=== PATIENT | male | born 1955 | race Caucasian/White ===

== ENCOUNTER 2022-10-17 21:59 | Inpatient (IN) | payer MEDICARE, BC, MEDICAID ==
[2022-10-17 22:39] LABS: Hemoglobin 14.3 g/dL (14.0-18.0); Mean Corpuscular HGB CONC 34.1 g/dL (32.0-36.0); Mean Corpuscular Hemoglobin 32.7 pg (27.0-31.0); Mean Corpuscular Volume 95.7 fl (78.0-98.0); Mean Platelet Volume 7.4 fL (7.4-10.4); Platelet Count 307 10x3/uL (130-400); RBC Distribution Width 12.1 % (11.5-14.5); Red Blood Cell (RBC) Count 4.39 mill/uL (4.70-6.10); White Blood Cell (WBC) Count 16.4 10x3/uL (4.8-10.8)
[2022-10-17 22:55] LABS: ALT (SGPT) Less than 7 U/L (8-55); AST (SGOT) 14 U/L (5-34); Albumin 3.8 g/dL (3.4-4.8); Alkaline Phosphatase 92 U/L (40-110); Anion Gap 18 mmol/L (10-20); BUN (Urea Nitrogen) 32 mg/dL (8.4-25.7); Bilirubin, Total 0.5 mg/dL (0.2-1.2); Calc. Creatinine Clearance 0 mL/min (70-130); Calcium 8.2 mg/dL (7.8-10.44); Carbon Dioxide 25 mmol/L (23-31); Chloride 93 mmol/L (98-107); Estimated GFR 47; Globulin 3.3 g/dL (2.4-3.5); Glucose 214 mg/dL (80-115); Potassium 3.9 mmol/L (3.5-5.1); Protein, Total 7.1 g/dL (5.8-8.1); Sodium 132 mmol/L (136-145)
[2022-10-17 22:57] LABS: Band 30 % (5-11); Lymphocytes 10 % (21-51); MDiff Complete? YES; Monocytes 9 % (0-10); Neutrophil 51 % (42-75)
[2022-10-17] MEDS ORDERED: Cefepime 2 GM VIAL ONE (23:26)
[2022-10-18 00:12] LABS: Bacteria/HPF 3+ HPF (None Seen); Bilirubin 1+ (Negative); Blood, Urine 1+ (Negative); Clarity Extra Turbid (Clear); Glucose, Urine (Dipstick) Normal (Negative); Ketone, Urine 10 mg/dL (Negative); Leukocyte 500 Leu/uL (Negative); Nitrite Negative (Negative); Protein, Urine (Dipstick) 200 mg/dL (Neg-Trace); RBC/HPF 0-3 HPF (0-3); Specific Gravity, Urine 1.021 (1.002-1.036); WBC/HPF Greater than 50 HPF (0-3); pH, Urine 7.5 (5.0-9.0)
[2022-10-18] MEDS ORDERED: Vancomycin 1 GM/200 ML (FROZEN) BAG ONE ×2 (00:30→00:33)
[2022-10-18] MEDS ORDERED: Ondansetron ODT 4 MG TAB PO PRN ×2 (02:05→09:38)
[2022-10-18] MEDS ORDERED: Dextrose 5% in Water 1,000 ML IV PRN (02:05)
[2022-10-18] MEDS ORDERED: Acetaminophen 650 MG Suppository PR PRN (02:05)
[2022-10-18] MEDS ORDERED: HumaLOG 300 UNITS/3 ML VIAL SC PRN (02:05)
[2022-10-18] MEDS ORDERED: Acetaminophen 325 MG TAB PO PRN (02:05)
[2022-10-18] MEDS ORDERED: Dextrose 50% Abboject 50 ML SYRINGE SLOW IVP PRN (02:05)
[2022-10-18] MEDS ORDERED: Ondansetron PF 4 MG/2 ML Vial IVP PRN (02:05)
[2022-10-18 03:06] VITALS: BMI 26.2
[2022-10-18] MEDS ORDERED: Doxycycline 100 MG in Sodium Chloride 0.9% 100 ML IVPB SCH (05:00)
[2022-10-18 05:21] LABS: #Eosinphils 0.1 thou/uL (0.0-0.7); #Lymphocytes 2.2 thou/uL (1.20-3.40); #Monocytes 1.1 thou/uL (0.11-0.59); #Neutrophils 7.5 thou/uL (1.40-6.50); %Basophils 0.1 % (0.0-1.0); %Eosinophils 0.9 % (0.0-10.0); %Lymphocytes 20.5 % (21.0-51.0); %Monocytes 10.4 % (0.0-10.0); %Neutrophils 68.3 % (42.0-75.0); Hemoglobin 12.6 g/dL (14.0-18.0); Mean Corpuscular HGB CONC 33.8 g/dL (32.0-36.0); Mean Corpuscular Hemoglobin 32.6 pg (27.0-31.0); Mean Corpuscular Volume 96.4 fl (78.0-98.0); Mean Platelet Volume 7.4 fL (7.4-10.4); Platelet Count 255 10x3/uL (130-400); RBC Distribution Width 11.9 % (11.5-14.5); Red Blood Cell (RBC) Count 3.86 mill/uL (4.70-6.10); White Blood Cell (WBC) Count 10.9 10x3/uL (4.8-10.8)
[2022-10-18 05:39] LABS: Anion Gap 13 mmol/L (10-20); BUN (Urea Nitrogen) 30 mg/dL (8.4-25.7); Calc. Creatinine Clearance 68 mL/min (70-130); Calcium 7.9 mg/dL (7.8-10.44); Carbon Dioxide 28 mmol/L (23-31); Chloride 94 mmol/L (98-107); Estimated GFR 65; Glucose 184 mg/dL (80-115); Potassium 3.5 mmol/L (3.5-5.1); Sodium 131 mmol/L (136-145)
[2022-10-18 08:22] LABS: SARS-CoV-2 NAA Rapid Test Not Detected (NotDetected)
[2022-10-18] MEDS ORDERED: FLU VACC QS2022-23(65YR UP)/PF 240 MCG/0.7 ML SYRINGE IM ONE (09:00)
[2022-10-18] MEDS ORDERED: GUAIFENESIN 400 MG PO PRN (09:09)
[2022-10-18] MEDS ORDERED: Non-Formulary Item 1 EACH (Ondansetron Hcl [Zofran] 4 MG Tab) PO PRN (09:09)
[2022-10-18] MEDS ORDERED: Non-Formulary Item 1 EACH (Acetaminophen [Tylenol] 325 MG Capsule) PO PRN (09:09)
[2022-10-18] MEDS ORDERED: Non-Formulary Item 1 EACH (Ferrous Sulfate [Ferrous Sulfate] 325 MG Tab) PO PRN ×2 (09:09→09:39)
[2022-10-18] MEDS ORDERED: guaiFENesin 200 MG TAB PO PRN (09:35)
[2022-10-18] MEDS: Lactated Ringer's 1,000 ML IV SCH (09:55)
[2022-10-18] MEDS: Carbidopa/Levodopa 25-250 mg Tablet PO SCH ×3 (11:48→21:00)
[2022-10-18] MEDS: HumaLOG 300 UNITS/3 ML VIAL SC PRN ×2 (12:00→18:29)
[2022-10-18] MEDS ORDERED: Cefepime 1 GM in Sodium Chloride 0.9% 100 ML IVPB SCH (12:00)
[2022-10-18] MEDS: Diazepam 5 MG TAB PO SCH ×2 (14:22→20:59)
[2022-10-18] MEDS: carBAMazepine 200 MG TAB PO SCH ×2 (14:23→21:04)
[2022-10-18] MEDS ORDERED: Piperacillin/Tazobactam 3.375 GM in Sodium Chloride 0.9% 100 ML IVPB SCH (15:00)
[2022-10-18] MEDS: Piperacillin/Tazobactam 3.375 GM in Sodium Chloride 0.9% 100 ML IVPB SCH (20:59)
[2022-10-18] MEDS: metFORMIN 500 MG TAB PO SCH (21:00)
[2022-10-18] MEDS: QUEtiapine 25 MG TAB PO SCH (21:00)
[2022-10-18] MEDS: Atorvastatin Calcium 10 MG TAB PO SCH (21:00)
[2022-10-19] MEDS: Piperacillin/Tazobactam 3.375 GM in Sodium Chloride 0.9% 100 ML IVPB SCH ×3 (03:45→21:45)
[2022-10-19 05:37] LABS: #Basophils 0.1 thou/uL (0.0-0.2); #Eosinphils 0.3 thou/uL (0.0-0.7); #Lymphocytes 1.3 thou/uL (1.20-3.40); #Monocytes 0.8 thou/uL (0.11-0.59); %Basophils 0.8 % (0.0-1.0); %Eosinophils 4.2 % (0.0-10.0); %Lymphocytes 17.8 % (21.0-51.0); %Neutrophils 66.2 % (42.0-75.0); Hemoglobin 11.6 g/dL (14.0-18.0); Mean Corpuscular HGB CONC 32.7 g/dL (32.0-36.0); Mean Corpuscular Hemoglobin 32.4 pg (27.0-31.0); Mean Platelet Volume 7.4 fL (7.4-10.4); Platelet Count 277 10x3/uL (130-400); Red Blood Cell (RBC) Count 3.59 mill/uL (4.70-6.10); White Blood Cell (WBC) Count 7.5 10x3/uL (4.8-10.8)
[2022-10-19 06:02] LABS: Albumin 3.3 g/dL (3.4-4.8); Anion Gap 14 mmol/L (10-20); BUN (Urea Nitrogen) 14 mg/dL (8.4-25.7); BUN/Creatinine Ratio 18.18; Calc. Creatinine Clearance 106 mL/min (70-130); Calcium 8.4 mg/dL (7.8-10.44); Carbon Dioxide 30 mmol/L (23-31); Chloride 96 mmol/L (98-107); Estimated GFR 97; Glucose 141 mg/dL (80-115); Phosphorus 2.5 mg/dL (2.3-4.7); Potassium 3.7 mmol/L (3.5-5.1); Sodium 136 mmol/L (136-145)
[2022-10-19] MEDS: Lactated Ringer's 1,000 ML IV SCH ×2 (07:18→08:58)
[2022-10-19] MEDS: Stress 600 With Zinc 1 TAB PO SCH (08:55)
[2022-10-19] MEDS: Diazepam 5 MG TAB PO SCH ×3 (08:55→21:46)
[2022-10-19] MEDS: Propranolol HCl LA 60 MG CAP PO SCH (08:56)
[2022-10-19] MEDS: Ezetimibe 10 MG TAB PO SCH (08:56)
[2022-10-19] MEDS: Cyanocobalamin (Vitamin B-12) 1,000 MCG TAB PO SCH (08:56)
[2022-10-19] MEDS: metFORMIN 500 MG TAB PO SCH ×2 (08:56→21:46)
[2022-10-19] MEDS: Carbidopa/Levodopa 25-250 mg Tablet PO SCH ×4 (08:56→21:46)
[2022-10-19] MEDS: Multivit, Therapeutic 1 TAB PO SCH (08:56)
[2022-10-19] MEDS: QUEtiapine 25 MG TAB PO SCH ×2 (08:56→21:46)
[2022-10-19] MEDS: Amlodipine 10 MG TAB PO SCH (08:56)
[2022-10-19] MEDS: carBAMazepine 200 MG TAB PO SCH ×3 (08:57→21:46)
[2022-10-19] MEDS ORDERED: Non-Formulary Item 1 EACH (Multivitamin [Multivitamins] 1 CAP Capsule) PO SCH (09:00)
[2022-10-19] MEDS ORDERED: PROPRANOLOL HCL 120 MG PO SCH (09:00)
[2022-10-19] MEDS ORDERED: CYANOCOBALAMIN 1000 MCG PO SCH (09:00)
[2022-10-19] MEDS ORDERED: FOLIC ACID PO SCH (09:00)
[2022-10-19] MEDS ORDERED: VIT B COMPLEX AND C PO SCH (09:00)
[2022-10-19] MEDS ORDERED: [UNRECOGNIZED DRUG - OTHER] PO SCH (09:00)
[2022-10-19] MEDS: HumaLOG 300 UNITS/3 ML VIAL SC PRN ×2 (13:19→17:49)
[2022-10-19] MEDS: Atorvastatin Calcium 10 MG TAB PO SCH (21:46)
[2022-10-20] MEDS: Piperacillin/Tazobactam 3.375 GM in Sodium Chloride 0.9% 100 ML IVPB SCH (03:58)
[2022-10-20] MEDS: HumaLOG 300 UNITS/3 ML VIAL SC PRN ×3 (06:45→18:04)
[2022-10-20] MEDS: Ezetimibe 10 MG TAB PO SCH (09:03)
[2022-10-20] MEDS: Stress 600 With Zinc 1 TAB PO SCH (09:04)
[2022-10-20] MEDS: Multivit, Therapeutic 1 TAB PO SCH (09:04)
[2022-10-20] MEDS: Diazepam 5 MG TAB PO SCH ×3 (09:04→20:39)
[2022-10-20] MEDS: Carbidopa/Levodopa 25-250 mg Tablet PO SCH ×4 (09:04→20:39)
[2022-10-20] MEDS: carBAMazepine 200 MG TAB PO SCH ×3 (09:04→20:39)
[2022-10-20] MEDS: QUEtiapine 25 MG TAB PO SCH ×2 (09:04→20:39)
[2022-10-20] MEDS: metFORMIN 500 MG TAB PO SCH ×2 (09:04→17:40)
[2022-10-20] MEDS: Cyanocobalamin (Vitamin B-12) 1,000 MCG TAB PO SCH (09:04)
[2022-10-20] MEDS: Propranolol HCl LA 60 MG CAP PO SCH (09:04)
[2022-10-20] MEDS: Amlodipine 10 MG TAB PO SCH (09:04)
[2022-10-20] MEDS ORDERED: Furosemide 20 MG/2 ML VIAL SLOW IVP SCH (09:30)
[2022-10-20] MEDS: Amoxicillin/Potassium Clav 875 MG TAB PO SCH (20:39)
[2022-10-20] MEDS: Atorvastatin Calcium 10 MG TAB PO SCH (20:39)
[2022-10-21 05:53] LABS: #Basophils 0.1 thou/uL (0.0-0.2); #Eosinphils 0.3 thou/uL (0.0-0.7); #Lymphocytes 2.1 thou/uL (1.20-3.40); #Monocytes 0.7 thou/uL (0.11-0.59); #Neutrophils 7.2 thou/uL (1.40-6.50); %Basophils 0.6 % (0.0-1.0); %Eosinophils 3.2 % (0.0-10.0); %Lymphocytes 20.2 % (21.0-51.0); %Monocytes 6.6 % (0.0-10.0); %Neutrophils 69.3 % (42.0-75.0); Hemoglobin 13.2 g/dL (14.0-18.0); Mean Corpuscular HGB CONC 33.5 g/dL (32.0-36.0); Mean Corpuscular Hemoglobin 32.6 pg (27.0-31.0); Mean Corpuscular Volume 97.5 fl (78.0-98.0); Mean Platelet Volume 7.3 fL (7.4-10.4); Platelet Count 400 10x3/uL (130-400); Red Blood Cell (RBC) Count 4.05 mill/uL (4.70-6.10); White Blood Cell (WBC) Count 10.3 10x3/uL (4.8-10.8)
[2022-10-21 06:08] LABS: Albumin 3.5 g/dL (3.4-4.8); Anion Gap 14 mmol/L (10-20); BUN (Urea Nitrogen) 10 mg/dL (8.4-25.7); BUN/Creatinine Ratio 11.63; Calc. Creatinine Clearance 95 mL/min (70-130); Calcium 9.2 mg/dL (7.8-10.44); Carbon Dioxide 32 mmol/L (23-31); Chloride 92 mmol/L (98-107); Estimated GFR 94; Glucose 183 mg/dL (80-115); Phosphorus 3.1 mg/dL (2.3-4.7); Potassium 3.7 mmol/L (3.5-5.1); Sodium 134 mmol/L (136-145)
[2022-10-21] MEDS: HumaLOG 300 UNITS/3 ML VIAL SC PRN (06:19)
[2022-10-21] MEDS: QUEtiapine 25 MG TAB PO SCH ×2 (08:34→21:00)
[2022-10-21] MEDS: metFORMIN 500 MG TAB PO SCH ×2 (08:34→16:01)
[2022-10-21] MEDS: Cyanocobalamin (Vitamin B-12) 1,000 MCG TAB PO SCH (08:34)
[2022-10-21] MEDS: Carbidopa/Levodopa 25-250 mg Tablet PO SCH ×4 (08:34→21:00)
[2022-10-21] MEDS: Multivit, Therapeutic 1 TAB PO SCH (08:34)
[2022-10-21] MEDS: Diazepam 5 MG TAB PO SCH ×3 (08:34→20:59)
[2022-10-21] MEDS: Amlodipine 10 MG TAB PO SCH (08:34)
[2022-10-21] MEDS: Ezetimibe 10 MG TAB PO SCH (08:34)
[2022-10-21] MEDS: Amoxicillin/Potassium Clav 875 MG TAB PO SCH ×2 (08:34→21:00)
[2022-10-21] MEDS: Stress 600 With Zinc 1 TAB PO SCH (08:35)
[2022-10-21] MEDS: Propranolol HCl LA 60 MG CAP PO SCH (08:35)
[2022-10-21] MEDS: carBAMazepine 200 MG TAB PO SCH ×3 (08:47→21:00)
[2022-10-21] MEDS: Atorvastatin Calcium 10 MG TAB PO SCH (21:00)
[2022-10-22] MEDS: Amlodipine 10 MG TAB PO SCH (08:29)
[2022-10-22] MEDS: metFORMIN 500 MG TAB PO SCH (08:29)
[2022-10-22] MEDS: Amoxicillin/Potassium Clav 875 MG TAB PO SCH (08:38)
[2022-10-22] MEDS: Diazepam 5 MG TAB PO SCH (08:38)
[2022-10-22] MEDS: Cyanocobalamin (Vitamin B-12) 1,000 MCG TAB PO SCH (08:38)
[2022-10-22] MEDS: Ezetimibe 10 MG TAB PO SCH (08:38)
[2022-10-22] MEDS: Carbidopa/Levodopa 25-250 mg Tablet PO SCH (08:38)
[2022-10-22] MEDS: Propranolol HCl LA 60 MG CAP PO SCH (08:39)
[2022-10-22] MEDS: Stress 600 With Zinc 1 TAB PO SCH (08:39)
[2022-10-22] MEDS: QUEtiapine 25 MG TAB PO SCH (08:39)
[2022-10-22] MEDS: Multivit, Therapeutic 1 TAB PO SCH (08:39)
[2022-10-22 09:21] VITALS: BP 160/82; TEMP 97.5
[2022-10-22] MEDS: carBAMazepine 200 MG TAB PO SCH (10:26)
== END 2022-10-22 12:50 | disposition home or self-care (01) | DRG 177 ==
LOC: ERS 21:59 → MSONC 10-18 01:10 → OBSVTOIN 10-19 14:07
PROVIDERS: ADMIT Student in an Organized Health Care Education/Training Program; ATTEND Internal Medicine
DX: J69.0 Pneumonitis due to inhalation of food and vomit (principal); G93.41 Metabolic encephalopathy; J96.01 Acute respiratory failure with hypoxia; N39.0 Urinary tract infection, site not specified; N17.9 Acute kidney failure, unspecified; E87.1 Hypo-osmolality and hyponatremia; Z66 Do not resuscitate; G20 Parkinson's disease; F31.9 Bipolar disorder, unspecified; E11.9 Type 2 diabetes mellitus without complications; I10 Essential (primary) hypertension; F03.90 Unspecified dementia, unspecified severity, without behavioral disturbance, psychotic disturbance, mood disturbance, and anxiety; I87.2 Venous insufficiency (chronic) (peripheral); R13.10 Dysphagia, unspecified; J32.0 Chronic maxillary sinusitis; Z79.899 Other long term (current) drug therapy; Z79.84 Long term (current) use of oral hypoglycemic drugs; Z20.822 Contact with and (suspected) exposure to COVID-19
CPT/HCPCS: 36415; 36416; 51701; 70450; 71045; 74230; 80048; 80053; 80069; 81003; 81015; 83605; 84484; 85025; 87040; 87804; 90471; 90662; 93005; 96365; 96366; 96367; 96372; 96375; 96376; G0008; G0378; J0692; J1650; J1815; J1940; J1956; J2543; J3370-JW; J3490; J7120; U0002